=== PATIENT | female | born 1990 | race African-American/Black ===

== ENCOUNTER 2020-02-13 00:08 | Emergency (ER) | payer MEDICAID ==
[~2020-02-13] VITALS: Ht 172.7 cm; Wt 59.0 kg
--- NOTE | 2020-02-13 00:20 | NUR ---
ED Nurse Note: patient ambulated to ed c/o sycopal fall today. patient reports trauma to posterior head. pain neck collar bone left arm. seen earlier today at [facility] for same reason; ct and labs resulted negative. patient ao4 with no acute distress. vitals stable. all safety measures met.
[2020-02-13 00:21] VITALS: BP 124/81
[2020-02-13] MEDS ORDERED: HYDROcodone/Acetamin 5/325 tab ORAL ONE (00:30)
--- NOTE | 2020-02-13 00:31 | Emergency Room Report ---
History of Present Illness General Chief Complaint: Pain Source: Patient Present Illness HPI Is a 29-year-old female with no past medical history. She presents with chief complaint of headache and neck pain and arm pain. Earlier today she had a syncopal episode at the store. She has not eaten thing today. She was standing and had a syncopal episode and fell hit her head. She was seen at [facility]. EKG, CT scan and blood work were normal. She was discharged home and told to increase fluids. At home she started having headache to the back of her head and neck pain. Pain is radiating to her left arm. Worse with movement. Better with rest. She says she cannot lift her arm because of the pain. Other injury since. Pain is 9 out of 10. Allergies: Coded Allergies: No Known Allergies (Unverified , 02/13/20) COVID-19 Screening Contact w/high risk pt: No Experienced COVID-19 symptoms?: No COVID-19 Testing performed SMASHER: No Patient History Past Medical History: see triage record, old chart reviewed Past Surgical History: none Pertinent Family History: none Social History: Denies: smoking Last Menstrual Period: 01/29/20 Now: No Immunizations: other Reviewed Nursing Documentation: PMH: Agreed; PSxH: Agreed Nursing Documentation-PMH Past Medical History: No Stated History Review of Systems Eye: Denies: eye pain, blurred vision ENT: Denies: ear pain, nose congestion, throat swelling Respiratory: Denies: cough, shortness of breath Cardiovascular: Denies: chest pain, palpitations Gastrointestinal: Denies: abdominal pain, diarrhea, nausea, vomiting Musculoskeletal: Denies: back pain, joint pain Skin: Denies: rash Neurological: Denies: headache, numbness Endocrine: Denies: increased thirst, increased urine Hematologic/Lymphatic: Denies: easy bruising All Other Systems: negative except mentioned in HPI Physical Exam Vital Signs Date Time Temp Pulse Resp B/P (MAP) Pulse Ox O2 Delivery O2 Flow Rate FiO2 02/13/20 00:13 99.0 88 16 124/81 (95) 96 Vitals normal Sp02 EP Interpretation: reviewed, normal General Appearance: well appearing, no apparent distress, alert Head: normocephalic, atraumatic Eyes: bilateral eye PERRL, bilateral eye EOMI ENT: hearing grossly normal, normal pharynx Neck: no meningismus, tender - Diffuse tenderness mostly on the left paraspinous muscle Respiratory: chest non-tender, lungs clear, normal breath sounds Cardiovascular #1: regular rate, rhythm, no murmur Gastrointestinal: normal bowel sounds, non tender, no mass, no organomegaly, no bruit, non-distended Musculoskeletal: back normal, normal range of motion, gait/station normal Psychiatric: mood/affect normal Medical Decision Making Diagnostic Impression: Primary Impression: Cervical strain, acute Qualified Codes: S16.1XXA - Strain of muscle, fascia and tendon at neck level, initial encounter ER Course Patient presents with neck pain with radicular symptoms. This probably secondary to cervical strain. No fracture or dislocation. No evidence of any cauda equina syndrome, spinal abscess or neoplastic process. Will discharge home. CT/MRI/US Diagnostic Results CT/MRI/US Diagnostic Results : Imaging Test Ordered: CT C-spine Impression Read by radiologist. Negative. Last Vital Signs Date Time Temp Pulse Resp B/P (MAP) Pulse Ox O2 Delivery O2 Flow Rate FiO2 02/13/20 00:21 99.0 84 16 124/81 96 Status: improved Disposition: HOME, SELF-CARE Condition: Stable Scripts Cyclobenzaprine Hcl (CYCLOBENZAPRINE HCL) 5 Mg Tablet 5 MG ORAL THREE TIMES A DAY for spasm, #21 TAB Prov: Kev Noriega MD 02/13/20 Ibuprofen* (MOTRIN*) 600 Mg Tablet 600 MG ORAL Q6H PRN for For Pain, #30 TAB 0 Refills Prov: Kev Noriega MD 02/13/20 Hydrocodone/Acetaminophen 5-325* (HYDROCODONE/ACETAMINOPHEN 5-325*) 1 Each Tablet 1 TAB ORAL Q6H PRN for For Pain, #15 TAB 0 Refills Prov: Kev Noriega MD 02/13/20 Referrals: [facility]ERR[facility] (PCP) Additional Instructions: Follow-up with your DrDeedee In 7 days. Return if symptoms worsen. Kev Noriega MD Feb 13, 2020 00:30
--- NOTE | 2020-02-13 00:45 | NUR ---
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
--- NOTE | 2020-02-13 01:15 | Diagnostic Imaging Report ---
EXAM: CT Cervical Spine Without Intravenous Contrast CLINICAL HISTORY: TRAUMA TECHNIQUE: Axial computed tomography images of the cervical spine without intravenous contrast. CTDI is 20.20 mGy and DLP is 555.10 mGy-cm. One or more of the following dose reduction techniques were used: automated exposure control, adjustment of the mA and/or kV according to patient size, use of iterative reconstruction technique. COMPARISON: No relevant prior studies available. FINDINGS: The vertebral body heights are maintained. There is no spondylolisthesis. The craniocervical junction is intact. The atlanto-dens interval is maintained. The dens is intact. Mild reversal of the cervical lordosis. The intervertebral disc spaces are preserved. There is no spinal canal or neural foraminal stenosis. The unenhanced neck soft tissues are grossly unremarkable. The visualized lung apices are grossly clear. IMPRESSION: No acute fracture or subluxation of the cervical spine. Mild reversal of the cervical lordosis.
--- NOTE | 2020-02-13 01:15 | NUR ---
ED Nurse Note: patient back from [facility]. reports relief of pain after analgesics
[2020-02-13] MEDS ORDERED: HYDROCODON-ACE1 EA15 ORAL (01:32)
[2020-02-13] MEDS ORDERED: IBUPROFEN600 M1 ORAL (01:32)
[2020-02-13] MEDS ORDERED: CYCLOBENZAPRINE5 MG ORAL (01:32)
[2020-02-13 01:35] VITALS: BP 121/80
--- NOTE | 2020-02-13 01:35 | NUR ---
ER DISCHARGE NOTE: Patient is cleared to be discharged per ERMD, pt is aox4, on room air, with stable vital signs. pt was given dc and prescription instructions, pt was able to verbalize understanding, pt id bandremoved. pt is able to ambulate with steady gait. pt took all belongings.
== END 2020-02-13 01:35 | disposition home or self-care (01) ==
LOC: EMR 00:28
DX: S16.1XXA Strain of muscle, fascia and tendon at neck level, initial encounter (principal); W01.10XA Fall on same level from slipping, tripping and stumbling with subsequent striking against unspecified object, initial encounter; Y93.89 Activity, other specified; Y92.512 Supermarket, store or market as the place of occurrence of the external cause
CPT/HCPCS: 72125; Z7502; 99284